=== PATIENT | female | born 1995 | race Caucasian/White ===

== ENCOUNTER 2021-07-19 13:45 | Emergency (ER) | payer OTHER ==
[~2021-07-19] VITALS: Ht 175.3 cm; Wt 101.3 kg
[2021-07-19] MEDS ORDERED: ONDANSETRON PF 4 MG/2 ML VIAL. IVP ONE (14:00)
[2021-07-19] MEDS ORDERED: IV NORMAL SALINE 1,000ML 1,000 ML IV SCH (14:00)
--- NOTE | 2021-07-19 14:01 | PHYS DOC ---
Past History Past Medical History: No Pertinent History Past Surgical History: No Surgical History, Cholecystectomy Smoking: Non-smoker Alcohol Use: None Drug Use: None Adult General HPI HPI Patient presents with repetitive vomiting that began yesterday. Patient says she is vomited numerous times since then. Patient states today developed a headache further general malaise. Patient dates she has had diarrhea x2 as well. Patient denies any significant abdominal pain currently. Patient denies any cough or shortness of breath. Review of Systems Review of Systems Constitutional: Fever and chills Eyes: Denies change in visual acuity, redness, or eye pain [] HENT: Denies nasal congestion or sore throat [] Respiratory: Denies cough or shortness of breath [] Cardiovascular: No additional information not addressed in HPI [] GI: No abdominal pain, repetitive vomiting repetitive diarrhea : Denies dysuria or hematuria [] Musculoskeletal: Denies back pain or joint pain [] Integument: Denies rash or skin lesions [] Neurologic: Denies headache, focal weakness or sensory changes [] Endocrine: Denies polyuria or polydipsia [] All other systems were reviewed and found to be within normal limits, except as documented in this note. Allergies Allergies Allergies Coded Allergies Type Severity Reaction Last Updated Verified No Known Drug Allergies 03/23/15 No Physical Exam Physical Exam Constitutional: Well developed, well nourished, no acute distress, non-toxic appearance. [] HENT: Normocephalic, atraumatic, bilateral external ears normal, oropharynx moist, no oral exudates, nose normal. [] Eyes: PERRLA, EOMI, conjunctiva normal, no discharge. [] Neck: Normal range of motion, no tenderness, supple, no stridor. [] Cardiovascular:Heart rate regular rhythm, no murmur [] Lungs & Thorax: Bilateral breath sounds clear to auscultation [] Abdomen: Bowel sounds normal, soft, no tenderness, no masses, no pulsatile masses. [] Skin: Warm, dry, no erythema, no rash. [] Back: No tenderness, no CVA tenderness. [] Extremities: No tenderness, no cyanosis, no clubbing, ROM intact, no edema. [] Neurologic: Alert and oriented X 3, normal motor function, normal sensory function, no focal deficits noted. [] Psychologic: Affect normal, judgement normal, mood normal. [] EKG EKG [] Radiology/Procedures Radiology/Procedures [] Heart Score C/O Chest Pain: N/A Risk Factors: Risk Factors: DM, Current or recent (<one month) smoker, HTN, HLP, family history of CAD, obesity. Risk Scores: Risk Factors: DM, Current or recent (<one month) smoker, HTN, HLP, family history of CAD, obesity. Course & Med Decision Making Course & Med Decision Making Patient with repetitive vomiting and diarrhea as well as fever on arrival. Patient does not have significant abdominal pain on exam. Patient will get IV fluids, full lab evaluation, we will add flu testing. 1455-patient with labs with no significant abnormality appreciated. No marked leukocytosis, flu testing is negative. Other LFTs and electrolytes all normal. Patient continues to have no significant abdominal pain on repeat examination. UA will be sent for culture, but does not initially appear to have significant infection. Patient will be discharged home with further symptom control. Symptoms are well controlled in the emergency department patient is feeling much better. Return precautions discussed at length. Dragon Disclaimer Dragon Disclaimer This electronic medical record was generated, in whole or in part, using a voice recognition dictation system. Departure Departure: Impression: Primary Impression: Gastroenteritis Disposition: HOME / SELF CARE / HOMELESS Condition: STABLE Referrals: BYRON SANTACRUZ MD (PCP) Patient Instructions: Viral Gastroenteritis Additional Instructions: Take medication as prescribed. Return for worsening symptoms or other concerns. Contact your primary care physician for outpatient follow-up Scripts Ondansetron (ONDANSETRON ODT) 4 Mg Tab.rapdis 1 TAB PO PRN Q6-8HRS for n/v MDD 6 tab for 5 Days, #16 TAB Prov: ANA EDOUARD MD 07/19/21 ANA EDOUARD MD July 19, 2021 14:01
[2021-07-19] MEDS ORDERED: ACETAMINOPHEN 500 MG TABLET PO ONE (14:15)
[2021-07-19 14:39] LABS: CALCIUM 8.9 mg/dL (8.5-10.1); CREATININE 0.7 mg/dL (0.6-1.0); POTASSIUM 3.5 mmol/L (3.5-5.1)
[2021-07-19 14:41] LABS: BASO % 0 % (0-3); EOS % 0 % (0-3); HEMATOCRIT 42.1 % (36.0-47.0); HEMOGLOBIN 13.8 g/dL (12.0-15.5); LYMPH # 0.4 x10^3/uL (1.0-4.8); LYMPH % 4 % (24-48); MEAN CORPUSCULAR HEMOGLOBIN 28 pg (25-35); MEAN CORPUSCULAR HGB CONC 33 g/dL (31-37); MEAN CORPUSCULAR VOLUME 86 fL (79-100); MONO # 0.5 x10^3/uL (0.0-1.1); MONO % 5 % (0-9); NEUT % 90 % (31-73); PLATELET COUNT 205 x10^3/uL (140-400); RED BLOOD COUNT 4.92 x10^6/uL (3.50-5.40); RED CELL DISTRIBUTION WIDTH 13.9 % (11.5-14.5); WHITE BLOOD COUNT 9.9 x10^3/uL (4.0-11.0)
[2021-07-19 14:44] LABS: INFLUENZA A PATIENT NEGATIVE (NEGATIVE); INFLUENZA B PATIENT NEGATIVE (NEGATIVE)
[2021-07-19 14:45] LABS: ALBUMIN 3.9 g/dL (3.4-5.0); ALBUMIN/GLOBULIN RATIO 1.3 (1.0-1.7); TOTAL BILIRUBIN 0.7 mg/dL (0.2-1.0); TOTAL PROTEIN 6.9 g/dL (6.4-8.2)
[2021-07-19 14:48] LABS: U PREG PATIENT NEGATIVE (NEG)
[2021-07-19 14:49] LABS: CLARITY,URINE CLEAR; COLOR,URINE YELLOW; GLUCOSE,URINE NEG (NEG); NITRITE,URINE NEG (NEG); UROBILINOGEN,URINE 0.2 mg/dL (0.2 mg/dL)
[2021-07-19 14:50] LABS: BACTERIA,URINE FEW /HPF (0-FEW); SQUAMOUS EPITHELIAL CELL,UR MOD /LPF; WBC,URINE OCC /HPF (0-4)
[2021-07-19] MEDS ORDERED: ONDA4TAB12 PO (14:59)
[2021-07-19 15:15] VITALS: BP 122/68
== END 2021-07-19 15:27 | disposition home or self-care (01) ==
LOC: ER 13:45
DX: K52.9 Noninfective gastroenteritis and colitis, unspecified (principal); Z90.49 Acquired absence of other specified parts of digestive tract
CPT/HCPCS: 36415; 80053; 81001; 81025; 83690; 85025; 87804; 96361; 96374; 99283; J2405; J7030; 87428